=== PATIENT | female | born 1945 | race Caucasian/White ===

== ENCOUNTER 2019-07-19 04:52 | Inpatient (IN) ==
[2019-07-14 08:52] LABS: URINE SOURCE CLEAN CATCH
--- NOTE | 2019-07-14 09:02 | EKG Report ---
Test Performed on : 07/14/2019 08:32:24 AM Test Reason : PAT Blood Pressure : / mmHG Vent. Rate : 077 BPM Atrial Rate : 077 BPM P-R Int : 150 ms QRS Dur : 086 ms QT Int : 370 ms P-R-T Axes : 049 030 026 degrees QTc Int : 418 ms Sinus rhythm. with premature atrial complexes. Cannot rule out Anterior infarct , age undetermined Abnormal ECG No previous ECGs available Confirmed by Syed ARGUELLES, David Sherman ([id number]) on 07/16/2019 7:00:30 PM
[2019-07-14 09:03] LABS: BASO# 0.03 X1000 (0.0-0.2); BASO% 0.5 % (0.0-0.8); EOS# 0.14 X1000 (0.0-0.7); EOS% 2.5 % (0.0-10.0); HEMOGLOBIN 12.9 g/dL (12.0-16.0); LYMPH# 1.32 X1000 (1.2-3.4); LYMPH% 23.5 % (20.5-51.1); MCH 31.1 PG (27-31); MCHC 32.3 g/dL (33-37); MCV 96.4 FL (81-99); MONO# 0.44 X1000 (0.11-0.59); MONO% 7.8 % (1.7-9.3); MPV 8.6 FL (7.4-10.4); NEUT# 3.68 X1000 (1.4-6.5); NEUT% 65.7 % (42.2-75.2); PLT 302 X1000 (130-400); RBC 4.15 XMIL (4.2-5.4); RDW 12.2 % (11.5-14.5); WBC 5.61 X1000 (4.8-10.8)
[2019-07-14 09:04] LABS: BILIRUBIN URINE NEGATIVE (NEGATIVE); BLOOD URINE NEGATIVE (NEGATIVE); COLOR YELLOW; GLUCOSE URINE NEGATIVE (NEGATIVE); KETONE URINE NEGATIVE (NEGATIVE); LEUKOCYTES URINE MODERATE (NEGATIVE); NITRITE URINE NEGATIVE (NEGATIVE); PROTEIN URINE NEGATIVE (NEGATIVE); SP GRAVITY URINE 1.014; TURBIDITY URINE CLEAR (CLEAR); UROBILINOGEN URINE NORMAL (NORMAL)
[2019-07-14 09:06] LABS: UR EPITHELIAL CELLS <10 /HPF (<10); URINE BACTERIA NEGATIVE /HPF; URINE RBC <10 /HPF (<10)
[2019-07-14 09:11] LABS: PROTIME 13.4 Seconds (11.0-16.0)
[2019-07-14 09:23] LABS: HEMOGLOBIN A1C 5.5 % (4.8-6.0)
[2019-07-14 09:50] LABS: AGAP 10; ALBUMIN 3.8 g/dL (3.5-5.0); BUN 9 mg/dL (8-22); CALCIUM 9.4 mg/dL (8.8-10.2); CHLORIDE 97 mmol/L (98-107); COSMO 269; CREATININE 0.6 mg/dL (0.5-0.9); ESTIMATED GFR > 60; GLUCOSE 103 mg/dL (70-104); POTASSIUM 3.9 mmol/L (3.5-5.1); SODIUM 135 mmol/L (136-145); TCO2 28 mmol/L (25-35)
[2019-07-19] MEDS ORDERED: REGLAN ONE (06:46)
[2019-07-19] MEDS ORDERED: COLACE ONE (06:46)
[2019-07-19] MEDS ORDERED: PEPCID ONE (06:46)
[2019-07-19] MEDS ORDERED: LYRICA ONE (06:47)
[2019-07-19] MEDS ORDERED: KEFZOL 1 GM/D5W 2 GM/100 ML IVPB ONE (06:47)
[2019-07-19] MEDS ORDERED: LR 1,000 ML ONE (06:47)
[2019-07-19] MEDS ORDERED: DIPRIVAN 1% ONE (06:48)
[2019-07-19] MEDS ORDERED: XYLOCAINE-MPF 2% ONE (06:48)
[2019-07-19] MEDS ORDERED: QUELICIN (DOSE) ONE (06:51)
[2019-07-19] MEDS ORDERED: CYKLOKAPRON 1,000 MG/NS 1,000 MG/100 ML IVPB ONE (06:57)
[2019-07-19] MEDS ORDERED: DURAMORPH ONE (06:57)
[2019-07-19] MEDS ORDERED: TORADOL ONE (06:57)
[2019-07-19] MEDS ORDERED: MARCAINE 0.25% PF ONE (06:57)
[2019-07-19] MEDS ORDERED: SODIUM CHLORIDE 0.9% ONE (06:58)
[2019-07-19] MEDS ORDERED: NEOSPORIN G.U. IRRIGANT ONE (06:59)
[2019-07-19] MEDS ORDERED: EXPAREL 1.3% ONE (06:59)
[2019-07-19] MEDS ORDERED: SUFENTA ONE ×2 (07:30→09:56)
[2019-07-19 09:36] LABS: URINE SOURCE CATH
[2019-07-19] MEDS ORDERED: OFIRMEV 1000 MG/ISOTONIC SOLN 1,000 MG/100 ML BOTTLE ONE (09:42)
[2019-07-19 09:44] LABS: BILIRUBIN URINE NEGATIVE (NEGATIVE); BLOOD URINE NEGATIVE (NEGATIVE); COLOR STRAW; GLUCOSE URINE NEGATIVE (NEGATIVE); KETONE URINE NEGATIVE (NEGATIVE); LEUKOCYTES URINE NEGATIVE (NEGATIVE); NITRITE URINE NEGATIVE (NEGATIVE); PH URINE 6.5; PROTEIN URINE NEGATIVE (NEGATIVE); SP GRAVITY URINE 1.004; TURBIDITY URINE CLEAR (CLEAR); UROBILINOGEN URINE NORMAL (NORMAL)
[2019-07-19 09:45] LABS: UR EPITHELIAL CELLS <10 /HPF (<10); URINE BACTERIA NEGATIVE /HPF; URINE RBC <10 /HPF (<10); URINE WBC <10 /HPF (<10)
[2019-07-19] MEDS ORDERED: NS 1,000 ML ONE (11:05)
--- NOTE | 2019-07-19 11:26 | OPERATIVE NOTE ---
PROCEDURE DATE: 07/19/2019 PREOPERATIVE DIAGNOSIS: Left hip degenerative joint disease. POSTOPERATIVE DIAGNOSIS: Left hip degenerative joint disease. PROCEDURE PERFORMED: Left anterior total hip arthroplasty using a [facility] size 9 high offset stem with a -4 neck length 36 mm head, a 52 mm hemispherical shell with two 6.5 cancellous screws of 35 and 30 mm and a 36 mm inside diameter acetabular liner. ANESTHESIA: Spinal. SURGEON: Roe Finley MD. AUTO DESIGN DETAILER: MYA Roblero, who was present throughout the case. Her assistance was critical to successful completion of case. ESTIMATED BLOOD LOSS: Minimal. DESCRIPTION OF PROCEDURE: The patient was brought to the operative suite and placed in supine position. After successful administration of spinal anesthesia, the patient was placed on the OSI table in the usual position for left hip. The left hip was then prepped and draped in the usual sterile fashion. A longitudinal incision was made beginning 3 cm distal and 3 cm lateral to the anterior superior iliac spine, extending distally and slightly laterally 8 cm. It is dissected sharply through the skin and subcutaneous tissue down to tensor fascia. Tensor fascia was incised and dissected bluntly down to deep tensor fascia. Deep tensor fascia was incised and circumflex vessels electrocauterized exposing the anterior capsule. T capsulotomy was performed exposing the femoral neck. Femoral neck cut was made with oscillating saw. The femoral head was removed with a power corkscrew. The labrum was resected. The acetabulum was serially reamed to 52 to accept a 52 cup. The 52 cup was driven into place in proper amount inclination and anteversion. Once it was verified to be in good position, two 6.5 cancellous screws were placed, a 35 mm superiorly and 30 mm posterior superiorly. The 36 mm inside diameter liner was then locked onto the shell. Attention was directed to the femur. It was externally rotated, extended, adducted, and elevated out of the wound with the hook on the OSI bed. The lateral neck was rongeured. The canal was serially broached to a size 9. A size 9 high offset to -4 was trialed and found be excellent leg length, fit and fill of the stem and stability if the hip and soft tissue tensioning. The trial was then removed. The definitive stem was seated onto the femur and then the ceramic 36 mm head was seated onto the Russell taper. The hip was again reduced it was again found to be in excellent position. The anterior capsule was repaired with 0 V-Loc. The hip was copiously infiltrated with Exparel, including the posterior capsule, anterior capsule, anterior musculature, and subcutaneous tissue and was copiously irrigated with normal saline containing irrigant and Vashe irrigation. The tensor fascia was then closed with a 0 V-Loc suture. The skin edge approximated with 2-0 Vicryl. Skin was closed with 4-0 Monocryl and a perineal dressing. The patient tolerated the procedure well without complications. At the end of the procedure all counts were correct x2. The patient was transferred to the recovery room in stable condition. cc: Roe Finley MD
[2019-07-19] MEDS ORDERED: ZOFRAN ODT PO PRN (12:00)
[2019-07-19] MEDS ORDERED: MORPHINE IV PRN ×3 (12:00)
[2019-07-19] MEDS ORDERED: MILK OF MAGNESIA PO PRN (12:00)
[2019-07-19] MEDS ORDERED: ZOFRAN IV PRN (12:00)
[2019-07-19] MEDS ORDERED: OXY IR PO PRN ×2 (12:00)
[2019-07-19] MEDS: NS 1,000 ML IV SCH (14:50)
[2019-07-19] MEDS ORDERED: CYKLOKAPRON 1,000 MG in NS 100 ML IV ONE (15:00)
[2019-07-19] MEDS: ULTRAM PO SCH ×2 (17:13→21:41)
[2019-07-19] MEDS: TYLENOL PO SCH ×2 (17:13→21:41)
[2019-07-19] MEDS: KEFZOL 2 GM/D5W 2 GM/50 ML IVPB IV SCH (17:14)
[2019-07-19] MEDS ORDERED: PHENERGAN IV PRN (17:57)
[2019-07-19] MEDS ORDERED: SODIUM CHLORIDE 0.9% INJ PRN (17:57)
[2019-07-19] MEDS: COLACE PO SCH (21:41)
[2019-07-19] MEDS: LYRICA PO SCH (21:41)
[2019-07-19] MEDS: PERIDEX MT SCH (21:42)
[2019-07-20] MEDS: NS 1,000 ML IV SCH (01:27)
[2019-07-20] MEDS: KEFZOL 2 GM/D5W 2 GM/50 ML IVPB IV SCH (01:27)
[2019-07-20] MEDS: TYLENOL PO SCH ×2 (03:21→09:43)
[2019-07-20] MEDS: ULTRAM PO SCH ×2 (03:21→09:43)
[2019-07-20] MEDS ORDERED: XARELTO PO SCH (06:00)
[2019-07-20 06:48] LABS: HEMATOCRIT 28.8 % (37.0-47.0); HEMOGLOBIN 9.6 g/dL (12.0-16.0)
[2019-07-20 07:14] LABS: AGAP 8; BUN 8 mg/dL (8-22); CALCIUM 8.4 mg/dL (8.8-10.2); CHLORIDE 97 mmol/L (98-107); COSMO 261; CREATININE 0.5 mg/dL (0.5-0.9); ESTIMATED GFR > 60; GLUCOSE 94 mg/dL (70-104); POTASSIUM 4.2 mmol/L (3.5-5.1); SODIUM 131 mmol/L (136-145); TCO2 26 mmol/L (25-35)
[2019-07-20] MEDS ORDERED: SALINE LOCK IV FLUID XX ONE (07:51)
[2019-07-20] MEDS ORDERED: VITAMIN B-12 SL SCH (09:00)
[2019-07-20] MEDS ORDERED: DECADRON IV ONE (09:00)
[2019-07-20] MEDS ORDERED: PEPCID PO SCH (09:00)
[2019-07-20] MEDS ORDERED: VITAMIN D PO SCH (09:00)
[2019-07-20] MEDS: COLACE PO SCH (09:42)
[2019-07-20] MEDS: PERIDEX MT SCH (09:42)
[2019-07-20] MEDS: LYRICA PO SCH (09:43)
[2019-07-20 11:45] VITALS: BP 117/59
--- NOTE | 2019-07-21 05:01 | DISCHARGE SUMMARY ---
ADMISSION DATE: 07/19/2019 DISCHARGE DATE: 07/20/2019 DISCHARGE DIAGNOSIS: Left hip degenerative joint disease status post left anterior total hip arthroplasty. DISCHARGE MEDICATION: See discharge medication list. DISPOSITION: The patient discharged home with home health physical therapy. Instructed to return for any signs or symptoms of infection or deep venous thrombosis. The patient was instructed to return to see Dr. Finley next . HOSPITAL COURSE: On the day of admission, patient underwent a left anterior total hip arthroplasty. Postop course was unremarkable. At discharge, she is afebrile, tolerating a regular diet, ambulating well with physical therapy. Her wound is clean, dry, intact without sign of infection. She is discharged home in stable condition with instructions to follow up as described above. cc: Roe Finley MD
== END 2019-07-20 13:08 | disposition home health service (06) | DRG 470 ==
LOC: SURHOLD 04:52 → 4N 09:09
PROVIDERS: ADMIT Orthopaedic Surgery; ATTEND Orthopaedic Surgery